=== PATIENT | male | born 1965 | race Asian ===

== ENCOUNTER 2021-01-25 09:57 | Emergency (ER) | payer BC ==
[2021-01-25 10:04] VITALS: PULSE 84; TEMP 98.4; BMI 28.3
[2021-01-25 11:12] LABS: CALCIUM 9.3 mg/dl (8.5-10); CREATININE 1.1 mg/dl (0.55-1.3)
[2021-01-25 11:31] VITALS: BP 145/89
== END 2021-01-25 12:25 | disposition home or self-care (01) ==
LOC: FER 09:57
DX: N40.1 Benign prostatic hyperplasia with lower urinary tract symptoms (principal)
CPT/HCPCS: 36415; 80048; 81003; 81015; 87086; 99283-25

== ENCOUNTER 2021-03-07 04:16 | Day surgery (SDC) | payer BC ==
[2021-03-06 15:09] VITALS: BMI 29.9
[2021-03-07] MEDS ORDERED: PROPOFOL 20 ML ONE (08:11)
[2021-03-07] MEDS ORDERED: MIDAZOLAM HCL 2 MG/2 ML SINGLE DOSE VIAL ONE (08:11)
[2021-03-07] MEDS ORDERED: LIDOCAINE HCL/PF 2% SDV 5ML VIAL ONE (08:13)
[2021-03-07] MEDS ORDERED: SODIUM CHLORIDE 0.9% P/F 10 ML VIAL IJ ONE ×2 (08:40→09:05)
[2021-03-07] MEDS ORDERED: ceFAZolin SODIUM 1 GM VIAL ONE (08:40)
[2021-03-07] MEDS ORDERED: GENTAMICIN SO4 80 MG/2 ML VIAL ONE (08:40)
[2021-03-07] MEDS ORDERED: GENTAMICIN SO4 80 MG/2 ML VIAL IVPB ONE (08:45)
[2021-03-07] MEDS ORDERED: ceFAZolin 2 GRAM PREMIX BAG IVPB ONE (08:45)
[2021-03-07] MEDS ORDERED: DESFLURANE GAS 240 ML BOTTLE IH ONE (09:01)
[2021-03-07] MEDS ORDERED: DEXAMETHASONE SOD PHOSPHATE 4 MG/1 ML VIAL ONE (09:02)
[2021-03-07] MEDS ORDERED: KETOROLAC TROMETHAMINE 30 MG/1 ML VIAL ONE (09:13)
[2021-03-07] MEDS ORDERED: oxyCODONE HCL 5 MG TABLET PO PRN ×2 (09:24→09:38)
[2021-03-07] MEDS ORDERED: DEXTROSE 5%-0.45% SALINE 1,000 ML IV SCH (09:30)
[2021-03-07] MEDS ORDERED: ONDANSETRON 4 MG/2 ML VIAL IVPUSH PRN (09:38)
[2021-03-07] MEDS ORDERED: LACTATED RINGERS SOLUTION 1,000 ML IV SCH (09:45)
[2021-03-07 14:49] VITALS: BP 135/100; PULSE 90; TEMP 97.7
== END 2021-03-07 11:50 | disposition home or self-care (01) ==
LOC: JASU-SURG 04:16
PROVIDERS: ATTEND Urology
PROC: 0TCB8ZZ Extirpation of Matter from Bladder, Via Natural or Artificial Opening Endoscopic (ICD-10-PCS; principal; 2021-03-07 08:30)
PROC: 0T9780Z Drainage of Left Ureter with Drainage Device, Via Natural or Artificial Opening Endoscopic (ICD-10-PCS; 2021-03-07 08:30)
PROC: BT1FYZZ Fluoroscopy of Left Kidney, Ureter and Bladder using Other Contrast (ICD-10-PCS; 2021-03-07 08:30)
DX: N21.0 Calculus in bladder (principal); N13.1 Hydronephrosis with ureteral stricture, not elsewhere classified
CPT/HCPCS: 36415; 82360; 88300-TC; 94760

== ENCOUNTER 2023-09-25 10:11 | Emergency (ER) | payer BC, OTHER ==
[2023-09-25 10:22] VITALS: BP 164/98; PULSE 65; RESP 18; TEMP 98.9; BMI 28.3
[2023-09-25] MEDS ORDERED: SODIUM CHLORIDE 1,000 ML IV STA (10:33)
[2023-09-25] MEDS ORDERED: ACETAMINOPHEN 1000 MG/100 ML BAG IVPB ONE (10:33)
[2023-09-25] MEDS ORDERED: FAMOTIDINE 20 MG/50 ML IVPB 20 MG/50 ML MG IVPB ONE ×2 (10:33→11:21)
[2023-09-25] MEDS ORDERED: ACETAMINOPHEN INJECTION 100 ML IVPB ONE (10:46)
[2023-09-25 11:15] LABS: BASO % 0.3 % (0-2.0); HEMATOCRIT 42.4 % (35.4-49); HEMOGLOBIN 14.5 GM/dL (11.7-16.9); LYMPH % 8.3 % (8-40); MCH 30.8 pg (25.7-33.7); MCHC 34.1 g/dl (32.0-35.9); MEAN CELL VOLUME 90.1 fl (80-96); MEAN PLT VOLUME 8.9 fl (7.5-11.1); NEUT % 88.4 % (42.8-82.8); PLATELET COUNT 168 10^3/uL (134-434); RDW 14.5 % (11.9-15.9); WHITE BLOOD COUNT 9.3 K/mm3 (4.0-10.0)
[2023-09-25] MEDS ORDERED: KETOROLAC TROMETHAMINE 30 MG/1 ML VIAL IVPUSH ONE (11:32)
[2023-09-25] MEDS ORDERED: KETOROLAC TROMETHAMINE 30 MG/1 ML VIAL ONE (11:36)
[2023-09-25 11:44] LABS: POTASSIUM 3.6 mmol/L (3.5-5.1)
[2023-09-25 11:47] LABS: MAGNESIUM 2.1 mg/dL (1.8-2.4)
[2023-09-25 11:49] LABS: CREATININE 1.9 mg/dL (0.55-1.3)
[2023-09-25 11:50] LABS: BILIRUBIN,DIRECT 0.2 mg/dL (0.0-0.2)
[2023-09-25 11:51] LABS: PHOSPHOROUS 3.4 mg/dL (2.5-4.9); TOT PROT 8.3 g/dl (6.4-8.2)
[2023-09-25 11:55] LABS: BLOOD UREA NITROGEN 23.6 mg/dL (7-18)
[2023-09-25 11:58] LABS: BILIRUBIN,TOTAL 0.6 mg/dL (0.2-1)
[2023-09-25 12:01] LABS: EPI CELLS 3 /uL (0-25.1); HYALINE CASTS 0 /uL (0-3.1); URINE APPEARANCE CLEAR; URINE BACTERIA 10 /uL (0-1359); URINE BILIRUBIN NEGATIVE (NEGATIVE); URINE COLOR YELLOW; URINE GLUCOSE (UA) NEGATIVE (NEGATIVE); URINE KETONE NEGATIVE (NEGATIVE); URINE LEUK ESTERASE NEGATIVE (NEGATIVE); URINE NITRITE NEGATIVE (NEGATIVE); URINE PROTEIN 1+ (NEGATIVE); URINE RBC 1949 /uL (0-23.9); URINE UROBILINOGEN 0.2 mg/dL (0.2-1.0); URINE WBC 8 /uL (0-25.8)
[2023-09-25] MEDS ORDERED: TAMSULOSIN HCL 0.4 MG CAP PO ONE (12:46)
[2023-09-25] MEDS ORDERED: TAMSULOSIN HCL 0.4 MG CAP ONE (12:48)
== END 2023-09-25 13:05 | disposition home or self-care (01) ==
LOC: JER 10:11
PROC: 3E033GC Introduction of Other Therapeutic Substance into Peripheral Vein, Percutaneous Approach (ICD-10-PCS; principal; 2023-09-25)
PROC: 3E033NZ Introduction of Analgesics, Hypnotics, Sedatives into Peripheral Vein, Percutaneous Approach (ICD-10-PCS; 2023-09-25)
PROC: 3E0333Z Introduction of Anti-inflammatory into Peripheral Vein, Percutaneous Approach (ICD-10-PCS; 2023-09-25)
PROC: 3E0337Z Introduction of Electrolytic and Water Balance Substance into Peripheral Vein, Percutaneous Approach (ICD-10-PCS; 2023-09-25)
DX: R31.9 Hematuria, unspecified (principal); R10.9 Unspecified abdominal pain; N20.0 Calculus of kidney; Z20.822 Contact with and (suspected) exposure to COVID-19
CPT/HCPCS: 0241U-QW; 36415; 74176-TC; 80053; 81003; 82248; 83605; 83690; 83735; 84100; 85025; 87086; 93005; 93010; 99285-25